=== PATIENT | male | born 2000 | race Caucasian/White ===

== ENCOUNTER 2022-07-14 11:57 | Observation (INO) | payer OTHER ==
[2022-07-14] MEDS ORDERED: CEFAZOLIN 2 GM VIAL ONE (12:26)
[2022-07-14] MEDS ORDERED: Ondansetron PF 4 MG/2 ML Vial ONE ×2 (12:26→16:15)
[2022-07-14] MEDS ORDERED: Morphine 4 MG/ML VIAL ONE ×2 (12:26→12:58)
[2022-07-14] MEDS ORDERED: Boostrix 0.5 ML (Tdap) VIAL (>/=7 yrs of age) ONE (12:26)
[2022-07-14] MEDS ORDERED: Bacitracin 1 PK ONE (12:36)
[2022-07-14] MEDS ORDERED: Bupivacaine 0.25% 10 ML VIAL ONE (12:41)
[2022-07-14 12:46] LABS: #Eosinphils 0.1 thou/uL (0.0-0.7); #Lymphocytes 1.4 thou/uL (1.20-3.40); #Neutrophils 6.1 thou/uL (1.40-6.50); %Basophils 0.1 % (0.0-1.0); %Eosinophils 1.3 % (0.0-10.0); %Lymphocytes 16.1 % (21.0-51.0); %Monocytes 11.2 % (0.0-10.0); %Neutrophils 71.3 % (42.0-75.0); Hemoglobin 15.8 g/dL (14.0-18.0); Mean Corpuscular HGB CONC 32.9 g/dL (32.0-36.0); Mean Corpuscular Hemoglobin 32.4 pg (27.0-31.0); Mean Corpuscular Volume 98.6 fl (78.0-98.0); Mean Platelet Volume 7.5 fL (7.4-10.4); Platelet Count 213 10x3/uL (130-400); Red Blood Cell (RBC) Count 4.88 mill/uL (4.70-6.10); White Blood Cell (WBC) Count 8.5 10x3/uL (4.8-10.8)
[2022-07-14 12:57] LABS: Prothrombin Time 13.8 sec (12.0-14.7)
[2022-07-14 12:58] LABS: PTT 22.8 sec (22.9-36.1)
[2022-07-14 13:18] LABS: ALT (SGPT) 14 U/L (8-55); AST (SGOT) 18 U/L (5-34); Albumin 4.4 g/dL (3.5-5.0); Alkaline Phosphatase 55 U/L (40-110); Anion Gap 11 mmol/L (10-20); BUN (Urea Nitrogen) 17 mg/dL (8.9-20.6); Bilirubin, Total 0.7 mg/dL (0.2-1.2); Calc. Creatinine Clearance 0 mL/min (70-130); Calcium 9.2 mg/dL (7.8-10.44); Carbon Dioxide 27 mmol/L (22-29); Chloride 103 mmol/L (98-107); Estimated GFR 111; Glucose 115 mg/dL (70-105); Protein, Total 7.4 g/dL (6.0-8.3); Sodium 137 mmol/L (136-145)
[2022-07-14] MEDS ORDERED: Dextrose 5% in Water 1,000 ML IV PRN (14:35)
[2022-07-14] MEDS ORDERED: Dextrose 50% Abboject 50 ML SYRINGE SLOW IVP PRN (14:35)
[2022-07-14] MEDS ORDERED: TETANUS, DIPHTHERIA TOX,ADULT (TDVAX) 0.5 ML VIAL IM ONE (14:35)
[2022-07-14] MEDS ORDERED: Morphine 2 MG/ML VIAL SLOW IVP PRN (14:35)
[2022-07-14] MEDS ORDERED: Ondansetron ODT 4 MG TAB PO PRN (14:35)
[2022-07-14] MEDS ORDERED: Ondansetron PF 4 MG/2 ML Vial IVP PRN (14:35)
[2022-07-14] MEDS ORDERED: traMADol HCl 50 MG TAB PO PRN (14:38)
[2022-07-14] MEDS ORDERED: Clindamycin/D5W 900 MG in Premix Bag 1 BAG IVPB SCH (15:00)
[2022-07-14] MEDS ORDERED: Midazolam HCl 2 mg/2 ml Vial ONE (15:41)
[2022-07-14] MEDS ORDERED: fentaNYL PF 100 MCG/2 ML SYRINGE ONE (15:41)
[2022-07-14] MEDS ORDERED: Famotidine/PF 20 mg/2ml Vial ONE (15:41)
[2022-07-14] MEDS ORDERED: HYDROmorphone 0.5 MG/0.5 ML SYRINGE ONE (15:41)
[2022-07-14] MEDS ORDERED: Ketamine 50 MG/ML (10ML VIAL) ONE (15:41)
[2022-07-14] MEDS ORDERED: Clindamycin/D5W 900 mg/50 ml Premix Bag ONE (16:03)
[2022-07-14] MEDS ORDERED: Sodium Chloride 0.9% 0 ML ONE (16:03)
[2022-07-14] MEDS ORDERED: PROPOFOL 200 MG/20 ML VIAL ONE (16:15)
[2022-07-14] MEDS ORDERED: Lidocaine 1% PF 5 ML VIAL ONE (16:15)
[2022-07-14] MEDS ORDERED: Dexamethasone 20 MG/5 ML VIAL ONE (16:15)
[2022-07-14] MEDS ORDERED: Fentanyl 100 MCG/2 ML VIAL ONE (19:02)
[2022-07-14] MEDS: Gabapentin 300 MG CAP PO SCH ×2 (20:06→22:27)
[2022-07-14] MEDS: CEFAZOLIN 1 GM in Sodium Chloride 0.9% 100 ML IVPB SCH (22:20)
[2022-07-14] MEDS: Acetaminophen 500 MG TAB PO SCH ×2 (22:22→23:37)
[2022-07-14] MEDS: traMADol HCl 50 MG TAB PO SCH ×2 (22:25→23:39)
[2022-07-14] MEDS: Famotidine 20 MG TAB PO SCH (22:27)
[2022-07-15 00:12] VITALS: BMI 23.8
[2022-07-15] MEDS: Acetaminophen 500 MG TAB PO SCH ×3 (06:33→17:29)
[2022-07-15] MEDS: traMADol HCl 50 MG TAB PO SCH ×3 (06:33→17:29)
[2022-07-15] MEDS: CEFAZOLIN 1 GM in Sodium Chloride 0.9% 100 ML IVPB SCH (06:34)
[2022-07-15] MEDS: Clindamycin/D5W 900 MG in Premix Bag 1 BAG IVPB SCH ×2 (08:25→15:12)
[2022-07-15] MEDS: Famotidine 20 MG TAB PO SCH (08:25)
[2022-07-15] MEDS: Gabapentin 300 MG CAP PO SCH ×2 (08:25→15:10)
[2022-07-15] MEDS ORDERED: Ascorbic Acid 500 mg Chewable Tablet PO SCH (09:00)
[2022-07-15 12:57] VITALS: BP 128/76; TEMP 98.1
[2022-07-15] MEDS ORDERED: Clindamycin 150 MG CAP PO SCH (22:00)
[2022-07-18] MEDS ORDERED: FLU VACC QS2022-23(6MOS UP)/PF 60 MCG/0.5 ML SYRINGE IM ONE (09:00)
== END 2022-07-15 17:38 | disposition home or self-care (01) ==
LOC: ERS 11:57 → SDC 15:36 → SJJU 18:26
PROVIDERS: ADMIT Surgery; ATTEND Surgery
PROC: 0PSH04Z Reposition Right Radius with Internal Fixation Device, Open Approach (ICD-10-PCS; principal; 2022-07-14)
PROC: 0PSK04Z Reposition Right Ulna with Internal Fixation Device, Open Approach (ICD-10-PCS; 2022-07-14)
DX: S52.351B Displaced comminuted fracture of shaft of radius, right arm, initial encounter for open fracture type I or II (principal); S52.251B Displaced comminuted fracture of shaft of ulna, right arm, initial encounter for open fracture type I or II; S62.001A Unspecified fracture of navicular [scaphoid] bone of right wrist, initial encounter for closed fracture; S59.001A Unspecified physeal fracture of lower end of ulna, right arm, initial encounter for closed fracture; G89.11 Acute pain due to trauma; Z88.0 Allergy status to penicillin; Z88.6 Allergy status to analgesic agent; V00.131A Fall from skateboard, initial encounter
CPT/HCPCS: 29125; 80053; 85025; 85610; 85730; 90471; 90715; 96365; 96375; 96376; C1713; G0378; J0690; J1100; J1170; J2250; J2270; J2405; J2704; J3010; J3490; S0020; S0028